=== PATIENT | male | born 1970 | race Hispanic/Latino ===

== ENCOUNTER 2017-09-14 15:14 | Emergency (ER) | payer SELFPAY ==
[2017-09-14 16:20] LABS: BASOPHILS % (AUTO) 0.9 % (0.0-5.0); HEMATOCRIT 46.6 % (42-54); MEAN CORPUSCULAR HEMOGLOBIN 31.3 pg (27.0-33.0); MEAN CORPUSCULAR HGB CONC 35.9 g/dL (32.0-36.0); MEAN CORPUSCULAR VOLUME 87.2 fL (79-99); MONOCYTES % (AUTO) 7.2 % (3.0-13.0); NEUTROPHILS % (AUTO) 53.9 % (40.0-77.0); PLATELET COUNT (AUTO) 348 K/uL (130-400); RED BLOOD CELL COUNT(AUTO) 5.35 MIL/uL (4.50-6.20); RED CELL DISTRIBUTION WIDTH 12.6 % (11.0-15.5); WHITE BLOOD COUNT (AUTO) 8.6 K/uL (4.8-10.8)
[2017-09-14 16:31] LABS: CREATININE 0.8 mg/dL (0.5-1.5); POTASSIUM 3.7 mmol/L (3.5-5.1)
[2017-09-14 16:36] LABS: ALBUMIN 4.4 g/dL (3.5-5.0); BILIRUBIN,TOTAL 0.4 mg/dL (0.2-1.0); TOTAL PROTEIN, SERUM 8.3 g/dL (6.0-8.3)
[2017-09-14 16:39] LABS: APPEARANCE,URINE Clear (CLEAR); BILIRUBIN,URINE Negative (NEGATIVE); COLOR,URINE Yellow (YELLOW); GLUCOSE, URINE (UA) Negative (NEGATIVE); KETONES,URINE Negative (NEGATIVE); LEUKOCYTE ESTERASE ,URINE Negative (NEGATIVE); NITRATE,URINE Negative (NEGATIVE); OCCULT BLOOD,URINE Negative (NEGATIVE); PROTEIN,URINE Negative (NEGATIVE)
[2017-09-14] MEDS ORDERED: IOPAMIDOL-370 75 ML VIAL IV ONE (18:11)
[2017-09-14] MEDS ORDERED: ONDANSETRON HCL MDV 20ML 2 MG/ML VIAL ONE (19:03)
== END 2017-09-14 19:11 | disposition home or self-care (01) ==
LOC: EDH 15:14
DX: R10.84 Generalized abdominal pain (principal); I10 Essential (primary) hypertension; Z98.890 Other specified postprocedural states; Z79.899 Other long term (current) drug therapy; Z91.030 Bee allergy status
CPT/HCPCS: 36415; 74177; 80053; 81003; 85025; 96374; 99285; Q9967

== ENCOUNTER → 2020-01-19 | Outpatient (CLI) | payer OTHER | END | disposition home or self-care (01) | LOC: RAH 10:09 | PROVIDERS: ATTEND Nurse Practitioner Adult Health | DX: Z13.6 Encounter for screening for cardiovascular disorders (principal) | CPT/HCPCS: 75571 ==

== ENCOUNTER 2022-08-25 11:38 | Emergency (ER) | payer BC, OTHER ==
[~2022-08-25] VITALS: Ht 172.7 cm; Wt 104.3 kg
[2022-08-25 12:25] LABS: BASOPHILS % (AUTO) 0.8 % (0.0-5.0); EOSINOPHILS % (AUTO) 1.7 % (0.0-8.0); HEMATOCRIT 47.9 % (42-54); LYMPHOCYTES % (AUTO) 35.9 % (21.0-51.0); MEAN CORPUSCULAR HEMOGLOBIN 30.9 pg (27.0-33.0); MEAN CORPUSCULAR HGB CONC 35.1 g/dL (32.0-36.0); MEAN CORPUSCULAR VOLUME 88.2 fL (79-99); MONOCYTES % (AUTO) 5.9 % (3.0-13.0); NEUTROPHILS % (AUTO) 55.5 % (40.0-77.0); PLATELET COUNT (AUTO) 317 K/uL (130-400); RED BLOOD CELL COUNT(AUTO) 5.43 MIL/uL (4.50-6.20); RED CELL DISTRIBUTION WIDTH 12.3 % (11.0-15.5); WHITE BLOOD COUNT (AUTO) 8.6 K/uL (4.8-10.8)
[2022-08-25 12:55] LABS: POTASSIUM 4.6 mmol/L (3.5-5.1)
[2022-08-25 12:56] LABS: ALBUMIN 4.5 g/dL (3.5-5.0); TOTAL PROTEIN, SERUM 8.2 g/dL (6.0-8.3)
[2022-08-25 18:02] LABS: APPEARANCE,URINE CLEAR (CLEAR); BILIRUBIN,URINE NEGATIVE (NEGATIVE); COLOR,URINE LIGHT-YELLOW (YELLOW); GLUCOSE, URINE (UA) NEGATIVE (NEGATIVE); KETONES,URINE NEGATIVE (NEGATIVE); LEUKOCYTE ESTERASE ,URINE NEGATIVE Leu/uL (NEGATIVE); NITRATE,URINE NEGATIVE (NEGATIVE); OCCULT BLOOD,URINE NEGATIVE (NEGATIVE); PH,URINE 6.5 (5.0-8.0); PROTEIN,URINE NEGATIVE (NEGATIVE); UROBILINOGEN,URINE 0.2 mg/dL (0.2-1.0)
[2022-08-25 18:09] LABS: MUCUS,URINE RARE LPF (None Seen); SQUAMOUS EPITHELIAL CELL,UR RARE /HPF (0-2); WBC,URINE 0-1 /HPF (0-1)
[2022-08-25] MEDS ORDERED: LOSA25TA41 PO (18:54)
[2022-08-25 19:08] VITALS: BP 127/84
== END 2022-08-25 19:15 | disposition home or self-care (01) ==
LOC: EDH 11:38
DX: T78.3XXA Angioneurotic edema, initial encounter (principal); G56.82 Other specified mononeuropathies of left upper limb; I10 Essential (primary) hypertension; E78.00 Pure hypercholesterolemia, unspecified; Z98.890 Other specified postprocedural states
CPT/HCPCS: 36415; 70450; 71045; 80053; 81001; 84484; 85025; 93005

== ENCOUNTER 2023-03-02 09:51 | Emergency (ER) | payer BC, OTHER ==
[~2023-03-02] VITALS: Ht 172.7 cm; Wt 106.6 kg
[~2023-03-02 09:51] MED LIST: LOSA25TA41 PO
[2023-03-02 10:18] LABS: BASOPHILS # (AUTO) 0.05 K/uL (0.00-0.20); BASOPHILS % (AUTO) 0.7 % (0.0-5.0); EOSINOPHILS # (AUTO) 0.12 K/uL (0.00-0.70); EOSINOPHILS % (AUTO) 1.7 % (0.0-8.0); HEMATOCRIT 48.8 % (42-54); IMMATURE GRANULOCYTE ABSOLUTE 0.02 K/uL (0-1); LYMPHOCYTES # (AUTO) 2.9 K/uL (1.0-4.8); LYMPHOCYTES % (AUTO) 41.2 % (21.0-51.0); MEAN CORPUSCULAR HEMOGLOBIN 30.9 pg (27.0-33.0); MEAN CORPUSCULAR HGB CONC 35.9 g/dL (32.0-36.0); MEAN CORPUSCULAR VOLUME 86.2 fL (79-99); MONOCYTES # (AUTO) 0.4 K/uL (0.1-1.0); MONOCYTES % (AUTO) 5.4 % (3.0-13.0); NEUTROPHILS # (AUTO) 3.6 K/uL (1.8-7.7); NEUTROPHILS % (AUTO) 50.7 % (40.0-77.0); PLATELET COUNT (AUTO) 318 K/uL (130-400); RED BLOOD CELL COUNT(AUTO) 5.66 MIL/uL (4.50-6.20); RED CELL DISTRIBUTION WIDTH 12.3 % (11.0-15.5); WHITE BLOOD COUNT (AUTO) 7.1 K/uL (4.8-10.8)
[2023-03-02 10:31] LABS: ALBUMIN 4.2 g/dL (3.5-5.0); BILIRUBIN,TOTAL 0.5 mg/dL (0.2-1.0); CREATININE 0.9 mg/dL (0.5-1.5); POTASSIUM 3.4 mmol/L (3.5-5.1)
[2023-03-02 11:24] LABS: SARS-CoV-2, RNA, NAAT NEGATIVE SARS CoV-2 (NEGATIVE)
[2023-03-02 11:26] LABS: INFLUENZA TYPE A Negative For Type A (NEGATIVE); INFLUENZA TYPE B Negative For Type B (NEGATIVE)
[2023-03-02] MEDS ORDERED: MECLIZINE HCL 25 MG TABLET PO ONE (12:00)
[2023-03-02] MEDS ORDERED: HYDRALAZINE 20MG/ML VIAL IV ONE (12:00)
[2023-03-02] MEDS ORDERED: HYDR-3420 PO (13:46)
[2023-03-02 14:09] VITALS: BP 130/80; PULSE 70; RESP 19; O2SAT 99
== END 2023-03-02 14:23 | disposition home or self-care (01) ==
LOC: EDH 09:51
DX: I67.4 Hypertensive encephalopathy (principal); E78.00 Pure hypercholesterolemia, unspecified; Z91.030 Bee allergy status; Z20.822 Contact with and (suspected) exposure to COVID-19
CPT/HCPCS: 99285; 96374; 70450; 71045; 87635; 84484; 80053; 85025; 87804 ×2; 36415; 93005; C9803; J0360

== ENCOUNTER 2023-05-24 07:10 | Emergency (ER) | payer OTHER ==
[~2023-05-24] VITALS: Ht 172.7 cm; Wt 106.6 kg
[~2023-05-24 07:10] MED LIST changes: +HYDR-3420 PO
[2023-05-24 07:36] LABS: BASOPHILS # (AUTO) 0.07 K/uL (0.00-0.20); BASOPHILS % (AUTO) 1.1 % (0.0-5.0); HEMATOCRIT 50.2 % (42-54); IMMATURE GRANULOCYTE ABSOLUTE 0.04 K/uL (0-1); LYMPHOCYTES # (AUTO) 2.6 K/uL (1.0-4.8); LYMPHOCYTES % (AUTO) 39.4 % (21.0-51.0); MEAN CORPUSCULAR HEMOGLOBIN 31.1 pg (27.0-33.0); MEAN CORPUSCULAR HGB CONC 35.3 g/dL (32.0-36.0); MEAN CORPUSCULAR VOLUME 88.2 fL (79-99); MONOCYTES # (AUTO) 0.4 K/uL (0.1-1.0); MONOCYTES % (AUTO) 5.4 % (3.0-13.0); NEUTROPHILS # (AUTO) 3.4 K/uL (1.8-7.7); NEUTROPHILS % (AUTO) 50.5 % (40.0-77.0); PLATELET COUNT (AUTO) 306 K/uL (130-400); RED BLOOD CELL COUNT(AUTO) 5.69 MIL/uL (4.50-6.20); WHITE BLOOD COUNT (AUTO) 6.6 K/uL (4.8-10.8)
[2023-05-24 07:58] LABS: ALBUMIN 4.2 g/dL (3.5-5.0); BILIRUBIN,TOTAL 0.6 mg/dL (0.2-1.0); POTASSIUM 3.7 mmol/L (3.5-5.1); TOTAL PROTEIN, SERUM 8.3 g/dL (6.0-8.3)
[2023-05-24] MEDS ORDERED: NITROGLYCERIN 1GM OINT 1 INCH/1GM TD ONE (08:00)
[2023-05-24] MEDS ORDERED: ACETAMINOPHEN 500 MG TABLET PO ONE (08:30)
[2023-05-24] MEDS ORDERED: BENZONATATE 100 MG CAPSULE PO ONE (08:30)
[2023-05-24 09:00] LABS: SARS-CoV-2, RNA, NAAT NEGATIVE SARS CoV-2 (NEGATIVE)
[2023-05-24 09:19] LABS: INFLUENZA TYPE A Negative For Type A (NEGATIVE); INFLUENZA TYPE B Negative For Type B (NEGATIVE)
[2023-05-24] MEDS ORDERED: BENZ-39 PO (09:37)
[2023-05-24 09:49] VITALS: BP 142/54; PULSE 63; RESP 17; O2SAT 95
== END 2023-05-24 10:07 | disposition home or self-care (01) ==
LOC: EDH 07:10
DX: S90.31XA Contusion of right foot, initial encounter (principal); R09.1 Pleurisy; J06.9 Acute upper respiratory infection, unspecified; I10 Essential (primary) hypertension; E78.00 Pure hypercholesterolemia, unspecified; Z79.899 Other long term (current) drug therapy; Z86.73 Personal history of transient ischemic attack (TIA), and cerebral infarction without residual deficits; Z91.030 Bee allergy status; Z20.822 Contact with and (suspected) exposure to COVID-19; W18.39XA Other fall on same level, initial encounter; Y93.89 Activity, other specified; Y92.89 Other specified places as the place of occurrence of the external cause; Y99.8 Other external cause status
CPT/HCPCS: 36415; 71045; 73620; 80053; 83690; 83735; 84484; 85025; 85378; 87635; 87804; 93005; 93970

== ENCOUNTER → 2024-05-19 | Outpatient (CLI) | payer OTHER ==
[~2024-05-19] MED LIST changes: +AEC81 PO; +ATOR40TA69 PO; +CLOP75TA32 PO; +GABA300C PO; -HYDR-3420 PO; +HYDR-3421 PO; -LOSA25TA41 PO; +METO37.5 PO; +TRAZ150T79 PO
[2024-05-19 17:40] LABS: ALBUMIN 4.2 g/dL (3.5-5.0); BILIRUBIN,TOTAL 0.6 mg/dL (0.2-1.0); POTASSIUM 4.4 mmol/L (3.5-5.1); TOTAL PROTEIN, SERUM 7.7 g/dL (6.0-8.3)
== END | disposition home or self-care (01) ==
LOC: LAB 15:36
PROVIDERS: ATTEND Student in an Organized Health Care Education/Training Program
DX: I25.10 Atherosclerotic heart disease of native coronary artery without angina pectoris (principal)
CPT/HCPCS: 36415; 80053

== ENCOUNTER → 2024-05-31 | Outpatient (CLI) | payer OTHER ==
[~2024-05-31] MED LIST changes: +IOHEXOL 350 MG/ML 100ML INFUS..BTL IV ONE
--- NOTE | 2024-05-31 14:27 | HMCIMG ---
CT ABDOMEN/PELVIS W/WO CONTRAS HISTORY: Palpable lump COMPARISON: None TECHNIQUE: Multiple sequential axial images of the abdomen and pelvis were obtained from the dome of the diaphragm through symphysis pubis. Patient was given 100 cc of Omnipaque through intravenous route. Oral contrast was not given. FINDINGS: No pleural effusion is seen bilaterally. There is no evidence of parenchymal disease or pulmonary nodule of the visualized lower lungs. Degenerative changes of the thoracolumbar spine are present. The heart is not enlarged. At the inferior aspect of the sternum, no definite mass lesion is seen. Clinical correlation is recommended. Liver is enlarged measuring 20 cm. The liver, spleen, adrenal glands and pancreas are unremarkable. There is no evidence of hydronephrosis bilaterally. There is left lower pole renal cyst measuring 12 mm. No evidence of renal stone is seen. Fecal material is seen in the colon. There are normal size retroperitoneal and mesenteric lymph nodes. No ascites is seen. No CT evidence of acute appendicitis is seen. Pelvic sidewalls are symmetric bilaterally. Bladder is poorly distended. IMPRESSION: 1. No acute findings. CT was performed with one or more following dose reduction techniques: automated exposure control, adjustment of the mA and kv according to patient's size, or use of a iterative reconstruction technique.
== END | disposition home or self-care (01) ==
LOC: RAH 10:23
PROVIDERS: ATTEND Student in an Organized Health Care Education/Training Program
DX: K46.9 Unspecified abdominal hernia without obstruction or gangrene (principal); N28.1 Cyst of kidney, acquired; R16.0 Hepatomegaly, not elsewhere classified; M47.815 Spondylosis without myelopathy or radiculopathy, thoracolumbar region
CPT/HCPCS: 74178; Q9967

== ENCOUNTER → 2024-07-19 | Outpatient (CLI) | payer OTHER ==
[~2024-07-19] MED LIST changes: -IOHEXOL 350 MG/ML 100ML INFUS..BTL IV ONE
== END | disposition home or self-care (01) ==
LOC: SHCH 15:34
PROVIDERS: ATTEND Student in an Organized Health Care Education/Training Program
DX: I70.213 Atherosclerosis of native arteries of extremities with intermittent claudication, bilateral legs (principal)
CPT/HCPCS: 93925

== ENCOUNTER 2024-09-22 19:20 | Emergency (ER) | payer OTHER ==
[~2024-09-22] VITALS: Ht 172.7 cm; Wt 112.5 kg
--- NOTE | 2024-09-22 19:26 | NUR ---
COVID, FLU AND STREP SWABS COLLECTED AND SENT
[2024-09-22 19:44] LABS: RAPID GROUP A STREP negative (NEGATIVE)
[2024-09-22 19:45] LABS: SARS-CoV-2, RNA, NAAT NEGATIVE SARS CoV-2 (NEGATIVE)
--- NOTE | 2024-09-22 19:46 | ERN ---
ED Note History of Present Illness Stated Complaint: COUGH, SORE THROAT, HEADACHE, CHILLS Chief Complaint: Flu Symptoms Time Seen by MD: 19:21 Time Seen by Midlevel: 19:21 Dictation: Patient is a 53-year-old male with a history of CAD, hypertension, hy perlipidemia, CABG who presents to the emergency department with complaints of shortness of breath, productive cough, sore throat, chest pressure onset a week ago. Patient reports he was seen by his doctor four days ago and was started on antibiotics and steroids. Reports he continue with the shortness of breath in the cough reports his Cardiology Dr. Castellano inform him to come to the ER for further evaluation. Allergies: Coded Allergies: bee venom protein (honey bee) (Verified Allergy, Unknown, 10/07/23) Uncoded Allergies: TEA (Allergy, Intermediate, HIVES, 08/15/23) ICE TEA ALLERGY Home Meds Active Scripts Albuterol Sulfate (Albuterol Sulfate) 2.5 Mg/0.5 Ml Vial.neb, 2.5 MG IH Q6H for wheezing/sob, #20 INH 0 Refills Prov:STEVIE YUSUF [employer] OPERATOR 09/22/24 Gabapentin (Neurontin) 300 Mg Capsule, 300 MG PO TID, #30 CAP 0 Refills Prov:FELIPE CASEY MD 10/10/23 Hydroxyzine HCl (Hydroxyzine HCl) 25 Mg Tablet, 25 MG PO TID PRN for ANXIETY, #30 TAB 0 Refills Prov:PAPITO MURILLO [employer] 10/09/23 Reported Medications Metoprolol Tartrate (Metoprolol Tartrate) 37.5 Mg Tablet, 37.5 MG PO DAILY, TAB 10/07/23 Trazodone HCl (Trazodone HCl) 150 Mg Tablet, 150 MG PO HS, TAB 10/07/23 Aspirin (ASPIRIN 81 MG ECTAB) 81 Mg Ectab, 81 MG PO DAILY, TAB.EC 10/07/23 Atorvastatin Calcium (LIPITOR) 40 Mg Tablet, 40 MG PO HS, TAB 08/12/23 Clopidogrel Bisulfate (Clopidogrel) 75 Mg Tablet, 75 MG PO DAILY, TAB 08/12/23 Past Medical History Past Medical History: CAD, High Cholesterol, Hypertension, Stroke Surgical History: CABG, Other Surgical History Other: HERNIA, KNEE RIGHT Social History: Negative, Lives with family RN Note Reviewed/Agreed w/PFSH: Yes Review of System Dictation Constitutional: Negative for fever,chills, and weight loss Eyes: Negative for injury, pain,redness, and discharge ENT: Negative for injury,pain or swelling Cardiovascular: Negative for chest pain, palpitations, and edema Respiratory: Positive for shortness of breath, cough, and wheezing, Abdomen/GI: Negative for abdominal pain, nausea, vomiting, diarrhea, and constipation Back: Negative for injury and pain : Negative for injury, bleeding and discharge MS/Extremity: Negative for injury and deformity Skin: Negative for rash, and discoloration Neuro: Negative for headache, weakness, numbness, tingling, and seizure Psych: Negative for suicide ideation, homicidal ideation, and hallucinations Initial Vital Sign VS Vital Signs Date Time Temp Pulse Resp B/P (MAP) Pulse Ox O2 Delivery O2 Flow Rate FiO2 09/22/24 19:21 98.4 88 20 163/91 96 Room Air Physical Exam Dictation Vital Signs reviewed General Appearance: Alert, oriented x 3, mildly distress, well developed, nourished. Head and Face: non-traumatic. Eyes: PERRL, pink conjunctivas, eyelid no trauma, anterior chamber with arcus senilis. Ears: Pinnas intact and no signs of trauma or erythema ear canals clear and no discharge TM no erythema Nose: No discharge, no bleeding. Oropharynx: Mouth normal, tongue pink. pharynx clear,no erythema, tonsils no exudates, no abscesses noted, mucous membrane moist Neck: Supple, non-tender, no thyromegaly, no masses, no JVD, no bruits Breast:Deferred Chest:No tenderness, no crepitus, no paradoxical movement, no retractions Lungs:Clear, well-ventilated, symmetric, no rales, + wheezing, no rhonchi, no stridor, good breath sounds bilaterally Heart: Regular rate, regular rhythm, no murmur, no gallops Vascular: no peripheral edema, Abdomen: Soft, positive bowel sounds, nondistended, no guarding, nontender, no rebound, no masses no hepatomegaly, no splenomegaly, no Beach's sign, no hernias. Rectal: Deferred Genital: Deferred Neurological: Normal speech, motor function intact, sensory function intact Musculoskeletal: Neck nontender, full range of motion, back nontender, full range of motion, Extremities: nontender, full range of motion Skin: Color pink, dry, no turgor, no rash, no lacerations, no abrasions, no contusions. Lymphatic: Deferred Results (Laboratory/Radiology) Laboratory/Radiology Laboratory Tests Test 09/22/24 19:26 09/22/24 21:13 Influenza Type A Antigen Negative For Type A Influenza Type B Antigen Negative For Type B SARS-CoV-2, RNA, NAAT NEGATIVE SARS CoV-2 Group A Streptococcus Rapid negative (NEGATIVE) White Blood Count 13.6 K/uL (4.8-10.8) H Red Blood Count 5.64 MIL/uL (4.50-6.20) Hemoglobin 17.3 g/dL (14.0-18.0) Hematocrit 49.0 % (42-54) Mean Corpuscular Volume 86.9 fL (79-99) Mean Corpuscular Hemoglobin 30.7 pg (27.0-33.0) Mean Corpuscular Hemoglobin Concent 35.3 g/dL (32.0-36.0) Red Cell Distribution Width 12.6 % (11.0-15.5) Platelet Count 329 K/uL (130-400) Mean Platelet Volume 8.8 fL (7.5-10.5) Immature Granulocyte % (Auto) 0.7 % (0-1) Neutrophils (%) (Auto) 57.1 % (40.0-77.0) Lymphocytes (%) (Auto) 34.9 % (21.0-51.0) Monocytes (%) (Auto) 6.1 % (3.0-13.0) Eosinophils (%) (Auto) 0.7 % (0.0-8.0) Basophils (%) (Auto) 0.5 % (0.0-5.0) Neutrophils # (Auto) 7.8 K/uL (1.8-7.7) H Lymphocytes # (Auto) 4.7 K/uL (1.0-4.8) Monocytes # (Auto) 0.8 K/uL (0.1-1.0) Eosinophils # (Auto) 0.10 K/uL (0.00-0.70) Basophils # (Auto) 0.07 K/uL (0.00-0.20) Absolute Immature Granulocyte (auto 0.10 K/uL (0-1) Nucleated Red Blood Cells 0.0 % (0.0-0.19) Sodium Level 142 mmol/L (136-145) Potassium Level 3.7 mmol/L (3.5-5.1) Chloride Level 104 mmol/L (101-111) Carbon Dioxide Level 27 mmol/L (21-32) Blood Urea Nitrogen 18 mg/dL (7-18) Creatinine 0.9 mg/dL (0.5-1.3) Glomerular Filtration Rate Calc 101 mL/min (>90) Random Glucose 106 mg/dL (70-105) H Total Calcium 9.1 mg/dL (8.5-10.1) Magnesium Level 2.20 mg/dL (1.80-2.40) Total Creatine Kinase 136 U/L (21-232) # Troponin I High Sensitivity 8.7 ng/L (4-75) B-Type Natriuretic Peptide 7 pg/mL (0-100) REASON: sob ORDERING PHYSICIAN: STEVIE YUSUF [employer] OPERATOR PROCEDURE: CXR1VW - CHEST 1VW CHEST 1VW HISTORY: Shortness of breath COMPARISON: None FINDINGS: A frontal projection of the chest was obtained. No acute pulmonary infiltrates is seen. Poststernotomy changes are seen. The heart is enlarged. Degenerative changes of the thoracolumbar spine are present. No evidence of aortic calcification is seen. IMPRESSION: 1. No acute pulmonary infiltrate is seen. Labs Reviewed?: Yes EKG: (+) rhythm EKG Comment: Date:09/22/2024 Time:1950 Ventricular rate:78 TN interval:130 QRS duration:104 QT/QTc:369 EKG interpretation: Sinus rhythm Reviewed by ED Attending no STEMI ED Course ED Course Orders Procedure Category Date Status Time Covid Rna Naat LAB 09/22/24 Complete 19:26 Influenza Type A & B, LAB 09/22/24 Complete Rapid 19:26 Rapid (Group A Strep) LAB 09/22/24 Complete 19:26 Cbc With Differential LAB 09/22/24 Complete 19:36 B-Type Natriuretic LAB 09/22/24 Complete Peptide 19:36 Chest 1vw RAD 09/22/24 Resulted 19:36 12 Lead Ekg Tracing- EKG 09/22/24 Complete Technical 19:36 Magnesium LAB 09/22/24 Complete 19:36 Urinalysis Profile LAB 09/22/24 Logged 19:36 Basic Metabolic Panel LAB 09/22/24 Complete 19:36 Methylprednisolone PHA 09/22/24 Complete Succ 125mg (Solu-Medr 20:00 Ipratropium/Albuterol PHA 09/22/24 Complete Neb (Duoneb) 20:00 Acetaminophen 500mg PHA 09/22/24 Complete Tab (Tylenol 500mg T 20:00 Cardiac Panel LAB 09/22/24 Complete 19:36 Current Medications Medications (Trade) Dose Ordered Sig/[place] Route PRN Reason Start Time Stop Time Status Last Admin Dose Admin Acetaminophen (TYLenol 500MG TAB) 1,000 mg ONCE ONCE PO 09/22/24 20:00 09/22/24 20:01 DC Albuterol (DUOneb) 1 UDVIAL ONCE ONCE IH 09/22/24 20:00 09/22/24 20:01 DC 09/22/24 20:05 Methylprednisolone Sodium Succinate (Solu-medROL 125MG) 125 mg ONCE ONCE IVP 09/22/24 20:00 09/22/24 20:01 DC Vital Signs Date Time Temp Pulse Resp B/P (MAP) Pulse Ox O2 Delivery O2 Flow Rate FiO2 09/22/24 20:05 85 19 09/22/24 19:21 98.4 88 20 163/91 96 Room Air Medical Decision Making MDM Patient is a 53-year-old male with a history of CAD, hypertension, hyperlipidemia, CABG who presents to the emergency department with complaints of shortness of breath, productive cough, sore throat, chest pressure onset a week ago. Patient reports he was seen by his doctor four days ago and was started on antibiotics and steroids. Reports he continue with the shortness of breath in the cough reports his Cardiology Dr. Castellano inform him to come to the ER for further evaluation. CBC showed mild leukocytosis, no anemia, chemistry showed no electrolyte imbalance, negative troponin, negative BNP, serology negative. X-ray showed no acute pulmonary infiltrate. Patient is already taking antibiotics prescribed by his primary doctor. Patient is also on steroids. On physical exam patient has improved drastically. He is no longer wheezing. Patient reports feeling better. Labs and imaging discussed with the patient who agrees to be discharged and follow up with primary doctor. Differential diagnosis: Pneumonia, ACS, bronchitis, dehydration, upper respiratory infection Need for hospitalization: Patient does not meet criteria for hospitalization. There are no social concerns with this patient. DX & DISP Disposition: Discharge Departure Impression: Primary Impression: Bronchitis Additional Impressions: Bronchospasm, Cough Condition: Stable Scripts Albuterol Sulfate (Albuterol Sulfate) 2.5 Mg/0.5 Ml Vial.neb 2.5 MG IH Q6H for wheezing/sob, #20 INH 0 Refills Prov: STEVIE YUSUF 09/22/24 Additional Instructions: Is follow up with your primary doctor in 1-2 days. Taking medications as prescribed. If symptoms worsen please return to ER. FOLLOW-UP WITH PRIMARY CARE PROVIDER IN 1 TO 2 DAYS. TAKE MEDICATIONS DIRECTED HERE IN THE EMERGENCY ROOM. OKAY TO CONTINUE HOME MEDICATIONS UNLESS OTHERWISE DISCUSSED DURING YOUR VISIT IN THE EMERGENCY ROOM TODAY. RETURN TO YOUR NEAREST EMERGENCY ROOM IF SYMPTOMS WORSEN OR IF THERE IS NO IMPROVEMENT. CALL 911 IF YOU NEED IMMEDIATE ASSISTANCE. TAKE TYLENOL OR MOTRIN [id number] NEEDED AND IF NO CONTRAINDICATIONS ARE PRESENT. INCREASE ORAL HYDRATION. A WOUND CULTURE OR URINE CULTURE WAS ORDERED HERE IN THE EMERGENCY ROOM DEPARTMENT PLEASE FOLLOW-UP WITH PRIMARY CARE PROVIDER AND ADVISE THEM TO GET REPEAT PORTS FROM OUR FACILITY. IF YOU HAD ANY ERIC WRAP/SPLINTS THAT WERE APPLIED HERE, PLEASE DO NOT REMOVE THEM UNTIL YOU SEE YOUR PRIMARY CARE OR SPECIALTY. Referrals: GRAHAM YOU MD (PCP) Time of Disposition: 22:03 I have reviewed the case, and I agree with, Diagnosis and Plan STEVIE YUSUF September 22, 2024 19:46
--- NOTE | 2024-09-22 19:52 | EKG ---
[facility] Test Date: 2024-09-22 Test Time: 19:50:32 Pat Name: ELSA HERRERA Department: ED Room: Gender: M Rn Maternity: [id number] Requested By: STEVIE YUSUF Order Number: [id number] Reading MD: Sobeida Castellano Measurements Intervals [place] Rate: 78 P: 64 WV: 130 QRS: 3 QRSD: 104 T: 54 QT: 369 QTc: 421 Interpretive Statements Sinus rhythm Probable left ventricular hypertrophy Compared to ECG 10/08/2023 09:13:10 Intraventricular conduction delay no longer present Electronically Signed On 09-23-2024 18:39:37 CDT by Sobeida Castellano Please click the below link to view image of tracing.
[2024-09-22 19:54] LABS: INFLUENZA TYPE A Negative For Type A (NEGATIVE); INFLUENZA TYPE B Negative For Type B (NEGATIVE)
[2024-09-22] MEDS ORDERED: Solu-medROL 125MG VIAL IVP ONE (20:00)
[2024-09-22 20:05] VITALS: PULSE 85; RESP 19
[2024-09-22] MEDS: IpraTROPium/alBUTERol SULFATE 3 ML SOLUTION IH ONE (20:05)
--- NOTE | 2024-09-22 20:48 | HMCIMG ---
CHEST 1VW HISTORY: Shortness of breath COMPARISON: None FINDINGS: A frontal projection of the chest was obtained. No acute pulmonary infiltrates is seen. Poststernotomy changes are seen. The heart is enlarged. Degenerative changes of the thoracolumbar spine are present. No evidence of aortic calcification is seen. IMPRESSION: 1. No acute pulmonary infiltrate is seen.
[2024-09-22 21:21] LABS: BASOPHILS # (AUTO) 0.07 K/uL (0.00-0.20); BASOPHILS % (AUTO) 0.5 % (0.0-5.0); EOSINOPHILS % (AUTO) 0.7 % (0.0-8.0); LYMPHOCYTES # (AUTO) 4.7 K/uL (1.0-4.8); LYMPHOCYTES % (AUTO) 34.9 % (21.0-51.0); MEAN CORPUSCULAR HEMOGLOBIN 30.7 pg (27.0-33.0); MEAN CORPUSCULAR HGB CONC 35.3 g/dL (32.0-36.0); MEAN CORPUSCULAR VOLUME 86.9 fL (79-99); MONOCYTES # (AUTO) 0.8 K/uL (0.1-1.0); MONOCYTES % (AUTO) 6.1 % (3.0-13.0); NEUTROPHILS # (AUTO) 7.8 K/uL (1.8-7.7); NEUTROPHILS % (AUTO) 57.1 % (40.0-77.0); PLATELET COUNT (AUTO) 329 K/uL (130-400); RED BLOOD CELL COUNT(AUTO) 5.64 MIL/uL (4.50-6.20); RED CELL DISTRIBUTION WIDTH 12.6 % (11.0-15.5); WHITE BLOOD COUNT (AUTO) 13.6 K/uL (4.8-10.8)
[2024-09-22 21:32] LABS: CREATININE 0.9 mg/dL (0.5-1.3); POTASSIUM 3.7 mmol/L (3.5-5.1)
[2024-09-22 21:40] LABS: MAGNESIUM 2.2 mg/dL (1.80-2.40)
[2024-09-22 21:51] LABS: B-TYPE NATRIURETIC PEPTIDE 7 pg/mL (0-100)
[2024-09-22] MEDS ORDERED: AUD IH (21:59)
[2024-09-22] MEDS: Solu-medROL 125MG VIAL IM ONE (22:47)
[2024-09-22] MEDS: acetaMINOPHEN 500 MG TABLET PO ONE (22:47)
[2024-09-22 22:55] VITALS: BP 138/74; PULSE 82; RESP 20; TEMP 98.4; O2SAT 96
== END 2024-09-22 22:56 | disposition home or self-care (01) ==
LOC: EDH 19:20
DX: J40 Bronchitis, not specified as acute or chronic (principal); J98.01 Acute bronchospasm; R05.9 Cough, unspecified; E78.00 Pure hypercholesterolemia, unspecified; I10 Essential (primary) hypertension; I25.10 Atherosclerotic heart disease of native coronary artery without angina pectoris; Z79.02 Long term (current) use of antithrombotics/antiplatelets; Z79.82 Long term (current) use of aspirin; Z79.899 Other long term (current) drug therapy; Z86.73 Personal history of transient ischemic attack (TIA), and cerebral infarction without residual deficits; Z91.030 Bee allergy status; Z95.1 Presence of aortocoronary bypass graft; Z20.822 Contact with and (suspected) exposure to COVID-19
CPT/HCPCS: 99285; 71045; 87635; 82550; 83735; 84484; 80048; 83880; 85025; 87880; 87804 ×2; 36415; 96372; 93005; 94640; J2919